=== PATIENT | female | born 1940 | race Caucasian/White ===

== ENCOUNTER 2017-05-09 08:25 | Emergency (ER) | payer MEDICARE ==
[2017-05-09] MEDS ORDERED: Aspirin Low Dose CHEW TAB* 81 MG PO ONE (09:04)
--- NOTE | 2017-05-09 09:28 | ED ---
Complex/Multi-Sys Presentation - HPI Summary HPI Summary: 76 female presents with complaints of nausea, vomiting, diarrhea and chest pain associated with shortness of breath. Nausea, vomiting and diarrhea began yesterday and lasted throughout the day and has since resolved with last episode of diarrhea being around 6:30am today 05/09/17. Patient states this morning she also experienced some intermittent, dull chest pain that lasted approximately 3 minutes at a time. She also admits to having shortness of breath when she was up walking around but she feels as though it is from feeling so weak, ill and dehydrated. She denies any current chest pain, SOB and abdominal pain. Experienced abdominal pain yesterday diffusely throughout the day that has improved. Admits to eating at "a pass the dish around" event on evening and thinks her symptoms may be from that. She has been unable to eat or drink without vomiting. She admits to feeling feverish yesterday but did not take her temperature. Denies hematemesis, melena, hematochezia. LBM was this morning. PMHx significant for cardiomyopathy, gastric ulcer resolved and tachycardia. Otherwise healthy individual. Denies difficulty breathing, dizziness, edema, headache, palpitations, diaphoresis, cough and current chest or abdominal pain. No recent bed rest, travel, antibiotic use, and does not use tobacco. - History Of Current Complaint Chief Complaint: EDChestPainROMI Time Seen by Provider: 05/09/17 09:03 Hx Obtained From: Patient Onset/Duration: Sudden Onset, Lasting Days - 1-2, Resolved - but still feeling weak and ill Timing: Intermittent, Lasting:, Minutes Severity Currently: None Severity Initially: Moderate Location: Pain At: - diffuse abdomen and mid sternal chest without radiation Character: Dull Aggravating Factor(s): eating worsened n/v/d Alleviating Factor(s): n/a Associated Signs And Symptoms: Positive: Weakness, SOB, Chest Pain, Nausea, Vomiting, Diarrhea, Abdominal Pain, Decreased Oral Intake, Fever - subjective. Negative: Decreased Responsiveness, Confusion, Agitation, Dizziness, Syncope, Headache, Cough, Wheezing, Palpitations, Edema, Back Pain, Dysuria, Melena, Diaphoresis - Allergies/Home Medications Allergies/Adverse Reactions: Allergies Allergy/AdvReac Type Severity Reaction Status Date / Time Iodine Allergy Severe Rash/Throat Verified 05/31/14 16:21 swelling Cefaclor Allergy Swelling Verified 05/30/14 17:53 Of Face,Lips,& Throat Penicillins Allergy Swelling Verified 05/30/14 17:53 Of Face,Lips,& Throat PMH/Surg Hx/FS Hx/Imm Hx Cardiovascular History: Reports: Hx Hypertension, Other Cardiovascular Problems/ Disorders - cardiomyopathy, tachycardia Respiratory History: Denies: Hx Asthma, Hx Chronic Obstructive Pulmonary Disease (COPD) GI History: Reports: Hx Ulcer Musculoskeletal History: Reports: Hx Arthritis Denies: Hx Rheumatoid Arthritis, Hx Osteoporosis Sensory History: Reports: Hx Contacts or Glasses Opthamlomology History: Reports: Hx Contacts or Glasses Neurological History: Reports: Hx Headaches - Surgical History Surgery Procedure, Year, and Place: hernia, hysterectomy,ovarian - Immunization History Immunizations Up to Date: Yes Infectious Disease History: No Infectious Disease History: Denies: Traveled Outside the [place] in Last 30 Days - Family History Known Family History: Positive: None - Social History Alcohol Use: None Substance Use Type: Reports: None Smoking Status (MU): Never Smoked Tobacco Review of Systems Positive: Fever, Chills, Fatigue Eyes: Negative ENT: Negative Positive: Chest Pain Positive: Shortness Of Breath Positive: Abdominal Pain, Vomiting, Diarrhea, Nausea Genitourinary: Negative Musculoskeletal: Negative Skin: Negative Positive: Weakness Psychological: Normal All Other Systems Reviewed And Are Negative: Yes Physical Exam Triage Information Reviewed: Yes Vital Signs On Initial Exam: Initial Vitals Temp Pulse Resp BP Pulse Ox 98 F 92 18 142/69 100 05/09/17 08:26 05/09/17 08:26 05/09/17 08:26 05/09/17 08:26 05/09/17 08:26 Vital Signs Reviewed: Yes Appearance: Positive: No Pain Distress, Well-Nourished, Ill-Appearing Skin: Positive: Warm, Skin Color Reflects Adequate Perfusion, Dry. Negative: Cold, Numb, Cyanosis @, Diaphoretic Head/Face: Positive: Normal Head/Face Inspection Eyes: Positive: Normal, EOMI, MINDI, Conjunctiva Clear ENT: Positive: Normal ENT inspection, Hearing grossly normal, Pharynx normal, TMs normal Neck: Positive: Supple, Nontender, No Lymphadenopathy Respiratory/Lung Sounds: Positive: Clear to Auscultation, Breath Sounds Present. Negative: Decreased Breath Sounds, Rales, Rhonchi, Stridor, Wheezes Cardiovascular: Positive: Normal, RRR, Pulses are Symmetrical in both Upper and Lower Extremities. Negative: Murmur, Rub, Leg Edema Left, Leg Edema Right Abdomen Description: Positive: Nontender, No Organomegaly, Soft. Negative: Bruit, CVA Tenderness (R), CVA Tenderness (L), Distended, Guarding, McBurney's Point Tenderness, Peritoneal Signs, Pulsatile Mass Bowel Sounds: Positive: Present, Hypoactive Musculoskeletal: Positive: Normal, Strength/ROM Intact Neurological: Positive: Normal, Sensory/Motor Intact, Alert, Oriented to Person Place, Time, NV Bundle Intact Distally, Normal Gait, Facial Symmetry, Speech Normal. Negative: Facial Droop Psychiatric: Positive: Affect/Mood Appropriate AVPU Assessment: Alert - [place] Coma Scale Best Eye Response: 4 - Spontaneous Best Motor Response: 6 - Obeys Commands Best Verbal Response: 5 - Oriented Coma Scale Total: 15 Diagnostics - Vital Signs Vital Signs Temp Pulse Resp BP Pulse Ox 05/09/17 08:37 13 05/09/17 08:36 140/75 05/09/17 08:33 98.3 F 84 18 140/75 95 05/09/17 08:26 98 F 92 18 142/69 100 - Laboratory Result Diagrams: 05/09/17 09:25 05/09/17 09:25 Lab Statement: Any lab studies that have been ordered have been reviewed, and results considered in the medical decision making process. - Radiology chest Xray Interpretation: No Acute Changes - PROBABLE NIPPLE SHADOW OVERLYING THE LEFT LUNG BASE. IF THERE IS CLINICAL CONCERN FOR PULMONARY PARENCHYMAL NODULARITY, RECOMMEND REPEAT IMAGING, INCLUDING OBLIQUE VIEWS WITH NIPPLE MARKERS Radiology Interpretation Completed By: Radiologist - EKG EKG Cardiac Rate: NL EKG Rhythm: Sinus Rhythm ST Segment: Normal Ectopy: None EKG Interpretation: right bundle branch block, NSR EKG Comparison: No Significant Change Re-Evaluation - Re-Evaluation First Eval Re-Evaluation Time: 10:30 Change: Improved - feeling better after first bag of fluids and zofran just recently administered. will wait for second bag of fluids and re-check before discharge Complex Multi-Symp Course/Dx Course Of Treatment: labs and EKG, chest x-ray obtained. Labs unremarkable. X- ray negative. Patient has not taken her 2 doses of digoxin or potassium today and both show to be low on labs. Given two bags of fluids and zofran and had significant improvement. No concern for any cardiac or respiratory etiology. No CHF or PE concern. Not currently having symptoms. Probably suffering from gastroenteritis from take out food she ate on and slight dehydration. Spoke with Dr Monroe and Dr Coyne about disposition as her age and PMHX are risk factors for cardiac syndromes. Discussed observation and nuclear stress test versus discharge home with follow up. Recieved records from stress test completed 2 weeks ago in office and had no signifcant change from her previous stress test in 2013. Negative troponin today. Spoke with Dr Conrad who stated if repeat troponin is negative she is safe to d/c home and follow up with Dr Nielsen , her instrument repairer steam plant. Decided that she be sent home at this time after repeat troponin was negative. Fluids, rest and continue at home medications. Given zofran for nausea as needed so able to keep meds/ food/ drink down. Aware of worsening signs and symptoms to return immediately for. Follow up with PCP and instrument repairer steam plant Dr Nielsen. - Diagnoses Differential Diagnoses/HQI/PQRI: Other - CA, ACS, PE, nausea/vomiting, Gastroenteritis Provider Diagnoses: Gastroenteritis, Weakness, Nausea vomiting and diarrhea, Chest pain - Physician Notifications Discussed Care Of Patient With: Dr Houston Coyne/Mabel at 11:00pm discuss with Dr Conrad Time Discussed With Above Provider: 11:54 Instructed by Provider To: Have Pt Call For Appt. Discharge - Discharge Plan Condition: Stable Disposition: HOME Prescriptions: Ondansetron ODT TAB* [Zofran 4 MG Odt TAB*] 4 mg PO Q6H PRN #10 tab.odt PRN Reason: Nausea Patient Education Materials: Acute Nausea and Vomiting (ED) Referrals: Alana Posada MD [Primary Care Provider] - Carlos Nielsen MD [Medical Doctor] - Additional Instructions: Take prescribed Zofran as needed for nausea/vomiting. Drink plenty of fluids and take daily mediations as directed. Rest and do not over exert yourself. Follow up with Dr Nielsne within the next 3-5 days. If you develop worsening symptoms, new symptoms or symptoms return/persist please return to ED immediately. Follow up with PCP.
[2017-05-09] MEDS: NS 0.9% 1000 ML* 2,000 ML IV ONE ×2 (09:36→10:15)
--- NOTE | 2017-05-09 09:39 | RAD ---
HISTORY: Chest pain COMPARISONS: May 30, 2014 VIEWS:1: Single frontal portable view of the chest at 8:23 AM FINDINGS: LINES AND TUBES: None. CARDIOMEDIASTINAL SILHOUETTE: The cardiomediastinal silhouette is normal for portable technique. PLEURA: The costophrenic angles are sharp. No pleural abnormalities are noted. LUNG PARENCHYMA: There is nodular density overlying the left lung base that is likely a nipple shadow ABDOMEN: The upper abdomen is clear. There is no subphrenic gas. BONES AND SOFT TISSUES: No bone or soft tissue abnormalities are noted. IMPRESSION: PROBABLE NIPPLE SHADOW OVERLYING THE LEFT LUNG BASE. IF THERE IS CLINICAL CONCERN FOR PULMONARY PARENCHYMAL NODULARITY, RECOMMEND REPEAT IMAGING, INCLUDING OBLIQUE VIEWS WITH NIPPLE MARKERS
[2017-05-09 09:41] LABS: Hematocrit 42 % (35-47); Hemoglobin 14.1 g/dl (12.0-16.0); Mean Corpuscular HGB Conc 34 g/dl (31-36); Mean Corpuscular Hemoglobin 31 pg (27-31); Mean Corpuscular Volume 91 fL (80-97); Mean Platelet Volume 7 um3 (7.4-10.4); Red Blood Count 4.58 10^6/ul (4.0-5.4); Red Cell Distribution Width 14 % (10.5-15); White Blood Count 3.2 10^3/ul (3.5-10.8)
[2017-05-09 09:42] LABS: Add Diff/Slide Review? Slide Review Added; Comments Flag Yes
[2017-05-09 09:55] LABS: ALT 17 U/L (7-52); AST 26 U/L (13-39); Albumin 3.9 g/dL (3.2-5.2); Alkaline Phosphatase 46 U/L (34-104); Anion Gap 8 mmol/L (2-11); BUN/Creatinine Ratio 26.7 (8-20); Blood Urea Nitrogen 16 mg/dL (6-24); CO2 Carbon Dioxide 25 mmol/L (22-32); Calcium 9.1 mg/dL (8.6-10.3); Chloride 100 mmol/L (101-111); EGFR African American 125.3 (>60); EGFR Non-African American 97.5 (>60); Globulin 3.4 g/dL (2-4); Glucose 113 mg/dL (70-100); Lipase < 10 U/L (11.0-82.0); Magnesium 1.9 mg/dL (1.9-2.7); Potassium 3.3 mmol/L (3.5-5.0); Sodium 133 mmol/L (133-145); Total Protein 7.3 g/dL (6.4-8.9)
[2017-05-09 09:57] LABS: Troponin I 0.01 ng/mL (<0.04)
[2017-05-09] MEDS ORDERED: Ondansetron INJ* 2 MG/ML VIAL IV ONE (10:07)
[2017-05-09 10:13] LABS: Digoxin 0.4 ng/ml (0.8-2.0)
[2017-05-09 11:52] LABS: Urine Bacteria Absent (Absent); Urine Bilirubin Negative (Negative); Urine Glucose Negative (Negative); Urine Nitrite Negative (Negative)
[2017-05-09 12:18] VITALS: BP 130/91
== END 2017-05-09 13:16 | disposition home or self-care (01) ==
LOC: ED 08:25
DX: K52.9 Noninfective gastroenteritis and colitis, unspecified (principal); R53.1 Weakness; R11.2 Nausea with vomiting, unspecified; R07.9 Chest pain, unspecified; R06.02 Shortness of breath; R19.7 Diarrhea, unspecified; R10.9 Unspecified abdominal pain
CPT/HCPCS: 36415; 71010; 80053; 80162; 81003; 81015; 83605; 83690; 83735; 84484; 85025; 85379; 93005; 99283; J2405

== ENCOUNTER 2018-04-20 08:14 | Day surgery (SDC) | payer MEDICARE ==
[~2018-04-20 08:14] MED LIST: Buffered Lidocaine 0.9% SYRIN* 5 ML/SYR SYRINGE INTRADERM ONE
[2018-04-20] MEDS ORDERED: Midazolam* 1 MG/ML 2 ML VIAL (2 MG) ONE (09:57)
[2018-04-20 10:26] VITALS: BP 126/62
[2018-04-20] MEDS ORDERED: Cyclopentolate 1% OPTH.SOL* 2 ML BTL ONE (11:51)
[2018-04-20] MEDS ORDERED: Ketorolac 0.5% OPHTH (NF) 0.5 % 5 ML BTL ONE (11:51)
[2018-04-20] MEDS ORDERED: Tropicamide 1% OPTH.SOL* BTL ONE (11:51)
[2018-04-20] MEDS ORDERED: Phenylephrine 2.5% OPTH.SOL* 2 ML BTL ONE (11:51)
[2018-04-20] MEDS ORDERED: Tetracaine 0.5% OPTH.SOL 4 ML* 1 DROP BTL ONE (11:51)
[2018-04-20] MEDS ORDERED: Lidocaine 1%* 5 ML VIAL ONE (11:51)
[2018-04-20] MEDS ORDERED: Neomycin/Polymy/Dex OPHTH.OIN* 3.5 GM ONE (11:51)
--- NOTE | 2018-04-21 05:01 | OP ---
DATE OF OPERATION: 04/20/18 [facility] DATE OF : 42 SURGEON: Dr. Satish Glover. FILM PROJECTOR OPERATOR: None. ANESTHESIA: Topical with intravenous sedation. PRE-OP DIAGNOSIS: Cataract, right eye. POST-OP DIAGNOSIS: Cataract, right eye. OPERATIVE PROCEDURE: Phacoemulsification and cataract extraction with posterior chamber intraocular lens implant, right eye. COMPLICATIONS: None. BLOOD LOSS: None. DESCRIPTION OF PROCEDURE: The patient was brought to the operating room and received a small amount of intra-venous sedation. A drop of Tetracaine was placed in her right eye. She was prepped and draped in the usual sterile fashion for ophthalmic surgery and attention was directed to the right eye where a speculum was placed. A paracentesis was created at the 11 o'clock position and 0.1 cc of 1 percent preservative-free Lidocaine was injected into the anterior chamber followed by DisCoVisc. The eye was digitally stabilized while a 2.75 mm keratome was used to create a triplanar clear corneal incision at the 9 o'clock position. A continuous curvilinear capsulorrhexis was created with a cystotome and Utrata forceps. BSS on a cannula was used to hydrodissect the lens from the capsule. Phacoemulsification was performed in a divide-and- conquer technique to create four fragments which were removed. Residual cortical material was removed with irrigation and aspiration. DisCoVisc was used to inflate the capsular bag and an AUOOTO 21.0 diopter lens was folded and inserted into the capsular bag. DisCoVisc was removed using irrigation and aspiration. BSS on a cannula was used to hydrate the corneal stroma and seal the wound. At the end of the case the pupil was round and the lens was centered. The eye was of normal pressure and the wound was water tight. The speculum was removed and topical Maxitrol ointment was placed on the surface of the eye. The eye was closed, patched and shielded and the patient was sent to the recovery room in stable condition with post operative instructions and follow-up appointment given. [id number]/CPS #: [id number] SUSANA
== END 2018-04-20 10:31 | disposition home or self-care (01) ==
LOC: OREAST 08:14
PROVIDERS: ATTEND Ophthalmology
DX: H25.13 Age-related nuclear cataract, bilateral (principal); K21.9 Gastro-esophageal reflux disease without esophagitis; I10 Essential (primary) hypertension; Z88.0 Allergy status to penicillin; Z88.8 Allergy status to other drugs, medicaments and biological substances
CPT/HCPCS: A9270-GY; J2250; V2632

== ENCOUNTER 2018-04-27 08:21 | Day surgery (SDC) | payer MEDICARE ==
[~2018-04-27 08:21] MED LIST changes: +Acetaminophen TAB* 325 MG PO PRN
[2018-04-27] MEDS ORDERED: Midazolam* 1 MG/ML 2 ML VIAL (2 MG) ONE (09:27)
[2018-04-27 10:20] VITALS: BP 127/68
[2018-04-27] MEDS ORDERED: acetaZOLAMIDE TAB* 250 MG ONE (14:02)
[2018-04-27] MEDS ORDERED: Povidone Iodine 5% OPTH* 30 ML BTL ONE (14:02)
[2018-04-27] MEDS ORDERED: Neomycin/Polymy/Dex OPTH.SUSP* MAXITROL 0.1% 5 ML ONE (14:02)
[2018-04-27] MEDS ORDERED: Lidocaine 2% EPI 1:200000 MPF*10-20 ML VIAL ONE (14:02)
[2018-04-27] MEDS ORDERED: Neomycin/Polymy/Dex OPHTH.OIN* 3.5 GM ONE ×2 (14:02→14:05)
[2018-04-27] MEDS ORDERED: Lidocaine 1%* 5 ML VIAL ONE ×2 (14:02→14:05)
[2018-04-27] MEDS ORDERED: Ketorolac 0.5% OPHTH (NF) 0.5 % 5 ML BTL ONE ×2 (14:02→14:05)
[2018-04-27] MEDS ORDERED: Tetracaine 0.5% OPTH.SOL 4 ML* 1 DROP BTL ONE ×2 (14:02→14:05)
[2018-04-27] MEDS ORDERED: Phenylephrine 2.5% OPTH.SOL* 2 ML BTL ONE ×2 (14:02→14:05)
[2018-04-27] MEDS ORDERED: Tropicamide 1% OPTH.SOL* BTL ONE ×2 (14:02→14:05)
[2018-04-27] MEDS ORDERED: Proparacaine 0.5% OPHTH.SOL* 15 ML BTL ONE (14:02)
[2018-04-27] MEDS ORDERED: Cyclopentolate 1% OPTH.SOL* 2 ML BTL ONE ×2 (14:02→14:05)
--- NOTE | 2018-04-28 05:27 | OP ---
DATE OF OPERATION: 04/27/18 [facility] DATE OF : 42 SURGEON: Dr. Satish Glover. GRAPHIC ENGINEER: None. ANESTHESIA: Topical with intravenous sedation. PRE-OP DIAGNOSIS: Cataract, left eye. POST-OP DIAGNOSIS: Cataract, left eye. OPERATIVE PROCEDURE: Phacoemulsification and cataract extraction with posterior chamber intraocular lens implant, left eye. COMPLICATIONS: None. BLOOD LOSS: None. DESCRIPTION OF PROCEDURE: The patient was brought to the operating room and received a small amount of intra-venous sedation. A drop of Tetracaine was placed in left eye. The patient was prepped and draped in the usual sterile fashion for ophthalmic surgery and attention was directed to the left eye where a speculum was placed. A paracentesis was created at the 5 o'clock position and 0.1 cc of 1 percent preservative-free Lidocaine was injected into the anterior chamber followed by DisCoVisc. The eye was digitally stabilized while a 2.75 mm keratome was used to create a triplanar clear corneal incision at the 3 o'clock position. A continuous curvilinear capsulorrhexis was created with a cystotome and Utrata forceps. BSS on a cannula was used to hydrodissect the lens from the capsule. Phacoemulsification was performed in a divide-and- conquer technique to create four fragments which were removed. Residual cortical material was removed with irrigation and aspiration. DisCoVisc was used to inflate the capsular bag and an AU00T0 22.0 diopter lens was folded and inserted into the capsular bag. DisCoVisc was removed using irrigation and aspiration. BSS on a cannula was used to hydrate the corneal stroma and seal the wound. At the end of the case the pupil was round and the lens was centered. The eye was of normal pressure and the wound was water tight. The speculum was removed and topical Maxitrol ointment was placed on the surface of the eye. The eye was closed, patched and shielded and the patient was sent to the recovery room in stable condition with post operative instructions and follow-up appointment given. [id number]/CPS #: [id number] SUSANA
== END 2018-04-27 10:15 | disposition home or self-care (01) ==
LOC: OREAST 08:21
PROVIDERS: ATTEND Ophthalmology
DX: H25.12 Age-related nuclear cataract, left eye (principal); I45.10 Unspecified right bundle-branch block; I10 Essential (primary) hypertension; I42.9 Cardiomyopathy, unspecified
CPT/HCPCS: A9270-GY; J2250; V2632

== ENCOUNTER 2019-12-13 13:42 | Inpatient (IN) | payer MEDICARE ==
--- OUTSIDE RECORDS SUMMARY | 2019-12-13 14:15 | XMS REPORT | Continuity of Care Document ---
:1940 External Reference #:[id number] Author Name Alcira Naik NShalom (transmitted by agent of provider Debby Garcia) Address [address] [place] [address] Care Team Providers Name Role Phone Vivi Perrin MD - Care Team Information Machine [facility]per [phone] Gastroenterology Paul Dumont MD - Internal Care Team Information Machine [facility] Medicine Bryan Garcia MD - Family Care Team Information Machine [facility]per [phone] Medicine Problems Active Problems Provider Date Benign essential hypertension Shimon Posada M.D. Onset: 03/02/2011 Duodenal ulcer without hemorrhage, without Shimon Posada M.D. Onset: perforation AND without obstruction Primary cardiomyopathy Carlos Nielsen M.D. Onset: 06/12/2014 Social History Type Date Description Comments Sex Unknown Tobacco Use Start: Unknown Never Smoked Cigarettes ETOH Use Occasionally consumes less than once a alcohol week Tobacco Use Start: Unknown Patient has never smoked Recreational Drug Use Denies Drug Use Smoking Status Reviewed: 12/13/19 Patient has never smoked Exercise Type/Frequency Exercises regularly walking Allergies, Adverse Reactions, Alerts Active Allergies Reaction Severity Comments Date Penicillins rash 02/19/2010 Ceclor 02/19/2010 IV Contrast rash 11/18/2011 Medications Active Medications SIG Qnty Indications Ordering Date Provider Nitroglycerin Apply Every 30units Shimon 05/11/2019 0.1mg/HR Night And Mami Posada Patches 24HR Remove 12 Hours Later Digoxin 1 tablet by 135tabs Alcira Naik, 02/18/2016 125mcg Tablets mouth 3 days a N.P. week Nitrostat one sl q5min up 25tabs I42.9 Carlos CampbellJose 10/04/2015 0.4mg Tablets Sub to 3 doses as Mami Nielsen needed Fish Oil Burp-Less by mouth once a Unknown 1000mg day Capsules Magnesium 1 tablet twice Unknown 250mg a day Klor-Con M20 take 2 tablets 180tabs Shimon 20Meq Tablets by mouth every CottonRashel.DJose ER day Fluorometholone 1 drop to both Unknown 0.1% eyes daily Suspension Restasis 1 drop on each Unknown 0.05% Emulsion eye daily Medications Administered in Office Medication SIG Qnty Indications Ordering Provider Date Technetium TC 99M TetrofosmAddy dunham M.D. 06/30/2019 Per Unit Dose Up To 40 Millicuries Injection Technetium TC 99M TetrofosminAddy M.D. 06/30/2019 Per Unit Dose Up To 40 Millicuries Injection Immunizations CPT Code Status Date Vaccine Lot # [id number] Given 08/02/2019 Influenza Virus Vaccine, Quadrivalent, Split, Preservative Free 82366 Given 09/02/2018 Fluzone High Dose 48198 Given 08/18/2017 Fluzone High Dose Q2039 Given 11/06/2016 Flu Vaccine NOS 43078 Given 10/30/2015 Influenza Virus Vaccine, Quadrivalent, Split, [id number] Preservative Free 38303 Given 05/08/2015 Pneumococcal Conjugate Vaccine 13 Valent For [id number] Intramuscular Use 21590 Given 09/14/2014 Flu Vaccine Split Virus Preservative Free For [id number] Indiv 3Yr Older Q2037 Given 12/01/2013 Fluvirin Im 3Yrs And Older [id number] Q2037 Given 11/15/2012 Fluvirin Im 3Yrs And Older [id number] Q2035 Given 11/04/2011 Afluria Vaccine 95234 Given 07/23/2010 Influenza Virus 3Yrs & Over 52359 Given 09/10/2009 Influenza Virus 3Yrs & Over 50966 Given 10/19/2008 Influenza Virus 3Yrs & Over 56600 Given 10/19/2008 Influenza Virus 3Yrs & Over 34979 Given 04/05/2007 Pneumonia Vaccine 49744 Given 10/06/2006 Influenza Virus 3Yrs & Over 28036 Given 10/06/2006 Influenza Virus 3Yrs & Over Vital Signs Date Vital Result Comment 12/13/2019 11:07am Height 61.75 inches 5'1.75" Weight 124.00 lb without shoes Heart Rate 70 /min BP Systolic Sitting 122 mmHg LA BP Diastolic Sitting 72 mmHg LA BP Systolic Standing 119 mmHg LA BP Diastolic Standing 70 mmHg LA BMI (Body Mass Index) 22.9 kg/m2 Ejection Fraction 55-60% Echo 08/15/2020 10/06/2019 11:26am Height 61.75 inches 5'1.75" Weight 125.00 lb no shoes Heart Rate 74 /min BP Systolic Sitting 126 mmHg lue reg cuff BP Diastolic Sitting 70 mmHg lue reg cuff BP Systolic Standing 120 mmHg lue reg cuff BP Diastolic Standing 70 mmHg lue reg cuff Respiratory Rate 14 /min BMI (Body Mass Index) 23.0 kg/m2 Ejection Fraction 55-60% echo. 08/15/19 Results Test Acquired Date Facility Test Result H/L Range Note Order 11/24/2019 [facility] Holter <pending> [address] [place] [address] [phone] Basic Metabolic 10/14/2019 [facility] Sodium 135 mmol/L Normal 135-[address] [place] [address] [phone] Potassium 4.3 mmol/L Normal 3.5-5.0 Chloride 101 mmol/L Normal 101-111 Co2 Carbon Dioxide 28 mmol/L Normal 22-32 Anion Gap 6 mmol/L Normal 2-11 Glucose 99 mg/dL Normal 70-100 Blood Urea Nitrogen 15 mg/dL Normal 6-24 Creatinine 0.69 mg/dL Normal 0.51-0.95 BUN/Creatinine Ratio 21.7 High 8-20 Calcium 9.2 mg/dL Normal 8.6-10.3 Egfr Non- 82.3 >60 Egfr 99.6 >60 1 Laboratory test 10/14/2019 [facility] Magnesium 2.0 mg/dL Normal 1.9-2.[address] [place] [address] [phone] Digoxin 0.9 ng/ml Normal 0.8-2.0 B-Type Natriuretic Peptide BNP 143 pg/mL High <=100 CBC Auto 09/07/2019 [facility] White Blood 5.0 10^3/uL Normal 3.5-10.[address] [place] [address] [phone] Red Blood Count 4.33 10^6/uL Normal 3.70-4.87 Hemoglobin 13.4 g/dL Normal 12.0-16.0 Hematocrit 40 % Normal 35-47 Mean Corpuscular Volume 92 fL Normal 80-97 Mean Corpuscular Hemoglobin 31 pg Normal 27-31 Mean Corpuscular HGB Conc 34 g/dL Normal 31-36 Red Cell Distribution Width 14 % Normal 10-15 Platelet Count 211 10^3/uL Normal 150-450 Mean Platelet Volume 7.1 fL Low 7.4-10.4 Abs Neutrophils 3.6 10^3/uL Normal 1.5-7.7 Abs Lymphocytes 0.9 10^3/uL Low 1.0-4.8 Abs Monocytes 0.4 10^3/uL Normal 0-0.8 Abs Eosinophils 0.0 10^3/uL Normal 0-0.6 Abs Basophils 0.1 10^3/uL Normal 0-0.2 Abs Nucleated RBC 0.0 10^3/uL Granulocyte % 72.2 % Lymphocyte % 18.5 % Monocyte % 7.4 % Eosinophil % 0.8 % Basophil % 1.1 % Nucleated Red Blood Cells % 0.1 Comp Metabolic 09/07/2019 [facility] Sodium 135 mmol/L Normal 135-[address] [place] [address] [phone] Potassium 4.1 mmol/L Normal 3.5-5.0 Chloride 100 mmol/L Low 101-111 Co2 Carbon Dioxide 29 mmol/L Normal 22-32 Anion Gap 6 mmol/L Normal 2-11 Glucose 80 mg/dL Normal 70-100 Blood Urea Nitrogen 15 mg/dL Normal 6-24 Creatinine 0.74 mg/dL Normal 0.51-0.95 BUN/Creatinine Ratio 20.3 High 8-20 Calcium 9.4 mg/dL Normal 8.6-10.3 Total Protein 6.7 g/dL Normal 6.4-8.9 Albumin 3.9 g/dL Normal 3.2-5.2 Globulin 2.8 g/dL Normal 2-4 Albumin/Globulin Ratio 1.4 Normal 1-3 Total Bilirubin 0.60 mg/dL Normal 0.2-1.0 Alkaline Phosphatase 49 U/L Normal 34-104 Alt 12 U/L Normal 7-52 Ast 18 U/L Normal 13-39 Egfr Non- 76.1 >60 Egfr 92.1 >60 2 Laboratory test 09/07/2019 [facility] Digoxin 0.7 ng/ml Low 0.8-2.0 3 finding [address] [place] [address] [phone] Basic Metabolic 07/06/2019 [facility] Sodium 136 mmol/L Normal 135-145 Panel [address] [place] [address] [phone] Potassium 4.7 mmol/L Normal 3.5-5.0 Chloride 101 mmol/L Normal 101-111 Co2 Carbon Dioxide 32 mmol/L Normal 22-32 Anion Gap 3 mmol/L Normal 2-11 Glucose 84 mg/dL Normal 70-100 Blood Urea Nitrogen 14 mg/dL Normal 6-24 Creatinine 0.68 mg/dL Normal 0.51-0.95 BUN/Creatinine Ratio 20.6 High 8-20 Calcium 9.5 mg/dL Normal 8.6-10.3 Egfr Non- 83.9 >60 Egfr 101.5 >60 4 Laboratory test 07/06/2019 [facility] Digoxin 1.4 ng/ml Normal 0.8-2.0 finding [address] [place] [address] [phone] CBC Auto Diff 07/06/2019 [facility] White Blood 4.5 Normal 3.5 -10.[address] [facility] Count 10^3/[place] [address] [phone] Red Blood Count 4.50 10^6/uL Normal 3.70-4.87 Hemoglobin 14.0 g/dL Normal 12.0-16.0 Hematocrit 41 % Normal 35-47 Mean Corpuscular Volume 91 fL Normal 80-97 Mean Corpuscular Hemoglobin 31 pg Normal 27-31 Mean Corpuscular HGB Conc 34 g/dL Normal 31-36 Red Cell Distribution Width 14 % Normal 10-15 Platelet Count 265 10^3/uL Normal 150-450 Mean Platelet Volume 6.9 fL Low 7.4-10.4 Abs Neutrophils 2.9 10^3/uL Normal 1.5-7.7 Abs Lymphocytes 1.0 10^3/uL Normal 1.0-4.8 Abs Monocytes 0.5 10^3/uL Normal 0-0.8 Abs Eosinophils 0.1 10^3/uL Normal 0-0.6 Abs Basophils 0.0 10^3/uL Normal 0-0.2 Abs Nucleated RBC 0.0 10^3/uL Granulocyte % 63.9 % Lymphocyte % 23.0 % Monocyte % 10.5 % Eosinophil % 1.7 % Basophil % 0.9 % Nucleated Red Blood Cells % 0.1 1 Because ethnic data is not always readily available, this report includes an eGFR for both -Americans and non- Americans. The National Kidney Disease Education Program (NKDEP) does not endorse the use of the MDRD equation for patients that are not between the ages of 18 and 70, are , have extremes of body size, muscle mass, or nutritional status, or are non- or non-. According to the National Kidney Foundation, irrespective of diagnosis, the stage of the disease is based on the level of kidney function: Stage Description GFR(mL/min/1.73 m(2)) 1 Kidney damage with normal or decreased GFR 90 2 Kidney damage with mild decrease in GFR 60-89 3 Moderate decrease in GFR 30-59 4 Severe decrease in GFR 15-29 5 Kidney failure <15 (or dialysis) 2 Because ethnic data is not always readily available, this report includes an eGFR for both -Americans and non- Americans. The National Kidney Disease Education Program (NKDEP) does not endorse the use of the MDRD equation for patients that are not between the ages of 18 and 70, are , have extremes of body size, muscle mass, or nutritional status, or are non- or non-. According to the National Kidney Foundation, irrespective of diagnosis, the stage of the disease is based on the level of kidney function: Stage Description GFR(mL/min/1.73 m(2)) 1 Kidney damage with normal or decreased GFR 90 2 Kidney damage with mild decrease in GFR 60-89 3 Moderate decrease in GFR 30-59 4 Severe decrease in GFR 15-29 5 Kidney failure <15 (or dialysis) 3 Copy Result to: SHIMON POSADA ([id number]) 4 Because ethnic data is not always readily available, this report includes an eGFR for both -Americans and non- Americans. The National Kidney Disease Education Program (NKDEP) does not endorse the use of the MDRD equation for patients that are not between the ages of 18 and 70, are , have extremes of body size, muscle mass, or nutritional status, or are non- or non-. According to the National Kidney Foundation, irrespective of diagnosis, the stage of the disease is based on the level of kidney function: Stage Description GFR(mL/min/1.73 m(2)) 1 Kidney damage with normal or decreased GFR 90 2 Kidney damage with mild decrease in GFR 60-89 3 Moderate decrease in GFR 30-59 4 Severe decrease in GFR 15-29 5 Kidney failure <15 (or dialysis) Procedures Date Code Description Status 12/13/2019 68357 EKG Tracing & Interpretation Completed 12/04/2019 20073 Holter Monitor Review (24 hr)dr review & interp only Completed 11/24/2019 53719 ECG Monitor/Recording W/Visual Superimposition Completed Scanning 11/24/2019 68115 ECG Monitor/Recording W/Visual Superimposition Completed Scanning 10/06/2019 11506 EKG Tracing & Interpretation Completed 08/30/2019 91967 EKG Tracing & Interpretation Completed 08/15/2019 81685 ECHO Transthoracic, Real-Time 2D With Doppler And Completed Color Flow 08/15/2019 34435 ECHO Transthoracic, Real-Time 2D With Doppler And Completed Color Flow 07/06/2019 59128 Mobile Cardiovascular Telemetry Over 24 HR Up To 30 Completed Days 07/05/2019 13169 Mobile Cardiovascular Telemetry Over 24 HR Up To 30 Completed Days 06/30/2019 65709 Stress Test Completed 06/30/2019 82713 Myocardial Perfusion Imaging Tomographic (Spect) Completed Multiple Studies 06/15/2019 79403 Mobile Cardiovascular Telemetry Over 24 HR Up To 30 Completed Days 05/11/2018 [id number] Bone Mineral Density Test Completed 04/27/2018 [id number] Diabetic Retinal Eye Exam Completed 03/30/2018 [id number] Diabetic Retinal Eye Exam Completed 03/04/2017 [id number] Mammogram Completed 05/29/2015 [id number] Mammogram Completed 12/06/2013 [id number] Mammogram Completed 12/03/2012 [id number] Mammogram Completed 12/03/2012 [id number] Bone Mineral Density Test Completed 03/01/2012 [id number] Colonoscopy Completed 02/25/2012 [id number] Colonoscopy Completed 11/18/2011 [id number] Mammogram Completed 08/01/2010 [id number] Mammogram Completed 08/01/2010 [id number] Bone Mineral Density Test Completed 02/23/2009 [id number] Colonoscopy Completed 03/01/2008 [id number] Diabetic Foot Exam Completed Medical Devices Description No Information Available Encounters Type Date Location Provider Dx Diagnosis Office Visit 12/13/2019 [facility] Alcira Naik, I44.1 Atrioventricular block, 11:30a Of Physical Metallurgist N.P. second degree I47.1 Supraventricular tachycardia R94.31 Abnormal electrocardiogram [ECG] [EKG] I34.0 Nonrheumatic mitral (valve) insufficiency R53.83 Other fatigue Office Visit 10/06/2019 11:30a [facility] Alcira Cheney I34.0 Nonrheumatic mitral Of Physical Metallurgist Gumaro, N.P. (valve) insufficiency I47.1 Supraventricular tachycardia I44.1 Atrioventricular block, second degree I45.10 Unspecified right bundle-branch block R06.00 Dyspnea, unspecified R42 Dizziness and giddiness Office Visit 08/30/2019 10:40a Hal Cochran I34.0 Nonrheumatic mitral Cardiology Mami Nielsen (valve) insufficiency I47.1 Supraventricular tachycardia R07.9 Chest pain, unspecified I45.10 Unspecified right bundle-branch block I44.1 Atrioventricular block, second degree Assessments Date Code Description Provider 12/13/2019 I44.1 Atrioventricular block, second degree Alcira S. Gumaro, N.P. 12/13/2019 I47.1 Supraventricular tachycardia Alcira S. Gumaro, N.P. 12/13/2019 R94.31 Abnormal electrocardiogram [ECG] [EKG] Alcira SJose Naik, N.P. 12/13/2019 I34.0 Nonrheumatic mitral (valve) Alcira S. Gumaro, N.P. insufficiency 12/13/2019 R53.83 Other fatigue Alcira Naik, N.P. 12/04/2019 I44.1 Atrioventricular block, second degree Carlos Nielsen M.D. 12/04/2019 I47.1 Supraventricular tachycardia Carlos Nielsen M.D. 11/24/2019 I44.1 Atrioventricular block, second degree Carlos Nielsen M.D. 11/24/2019 I44.1 Atrioventricular block, second degree Nurse Visit cc 11/24/2019 I47.1 Supraventricular tachycardia Carlos Nielsen M.D. 11/24/2019 I47.1 Supraventricular tachycardia Nurse Visit cc 10/16/2019 I47.1 Supraventricular tachycardia Carlos Nielsen M.D. 10/16/2019 I44.1 Atrioventricular block, second degree Carlos Nielsen M.D. 10/10/2019 I47.1 Supraventricular tachycardia Nurse Visit IC 10/10/2019 I44.1 Atrioventricular block, second degree Nurse Visit IC 10/06/2019 R94.31 Abnormal electrocardiogram [ECG] [EKG] Sonya Iglesias M.D. 10/06/2019 I34.0 Nonrheumatic mitral (valve) Alcira Naik, N.P. insufficiency 10/06/2019 I47.1 Supraventricular tachycardia Alcira Naik, N.P. 10/06/2019 I44.1 Mobitz type I incomplete Alcira Naik, N.P. atrioventricular block 10/06/2019 I45.10 Unspecified right bundle-branch block Alcira Naik, N.P. 10/06/2019 R06.00 Dyspnea, unspecified Alcira Niak, N.P. 10/06/2019 R42 Dizziness and giddiness Alcira Naik, N.P. 08/30/2019 I34.0 Nonrheumatic mitral (valve) Carlos Nielsen M.D. insufficiency 08/30/2019 I47.1 Supraventricular tachycardia Carlos Nielsen M.D. 08/30/2019 R07.9 Chest pain, unspecified Carlos Nielsen M.D. 08/30/2019 I45.10 Unspecified right bundle-branch block Carlos Nielsen M.D. 08/30/2019 I44.1 Mobitz type I incomplete Carlos Nielsen M.D. atrioventricular block 08/15/2019 I34.0 Nonrheumatic mitral (valve) Carlos Nielsen M.D. insufficiency 08/15/2019 I34.0 Nonrheumatic mitral (valve) [facility] insufficiency 07/06/2019 I47.1 Supraventricular tachycardia Carlos Nielsen M.D. 07/05/2019 I47.1 Supraventricular tachycardia Carlos Nielsen M.D. 06/30/2019 R07.9 Chest pain, unspecified Addy Salas M.D. 06/30/2019 R07.9 Chest pain, unspecified Carlos Nielsen M.D. 06/30/2019 I45.10 Unspecified right bundle-branch block Carlos Nielsen M.D. 06/15/2019 I47.1 Supraventricular tachycardia Carlos Nielsen M.D. Plan of Treatment Future Appointment(s):05/11/2020 1:20 pm - Shimon Posada M.D. at [facility] - [facility]12/13/2019 - Alcira Naik N.P.I44.1 Atrioventricular block, second degreeNew Labs:Cath Panel, Ordered: 12/13/19New Orders:Pacemaker Generator Change-Dual Lead System, Ordered: 12/13/19Follow up: Wound check after PPM scheduled at discharge To ER for evaluation NOW> Recommendations:Decrease digoxin to 3 days/ week HR is low and you had an episode of passing out which sounds like the heart paused Your irregular readings can also indicated heart block Recommend pacer implantation this week or next. This will allow us to continue you on medicine to suppress fast heart rhythms without making you soI47.1 Supraventricular zboeyqtrcrsR26.31 Abnormal electrocardiogram [ECG] [EKG]I34.0 Nonrheumatic mitral (valve) otfrloyazdscdS78.83 Other fatigue Functional Status Description No Information Available Mental Status Description No Information Available Referrals Description No Information Available
[2019-12-13 14:17] LABS: ABS Lymphocytes 1.2 10^3/ul (1.0-4.8); ABS Monocytes 0.5 10^3/ul (0-0.8); ABS Neutrophils 3.4 10^3/ul (1.5-7.7); Eosinophil % 0.9 %; Hematocrit 42 % (35-47); Hemoglobin 14.1 g/dL (12.0-16.0); Lymphocyte % 23.1 %; Mean Corpuscular HGB Conc 34 g/dL (31-36); Mean Corpuscular Hemoglobin 31 pg (27-31); Mean Corpuscular Volume 91 fL (80-97); Mean Platelet Volume 6.9 fL (7.4-10.4); Platelet Count 228 10^3/uL (150-450); Red Blood Count 4.58 10^6 /uL (3.70-4.87); Red Cell Distribution Width 14 % (10-15); White Blood Count 5.2 10^3/uL (3.5-10.8)
[2019-12-13 14:26] LABS: INR 1.05 (0.82-1.09)
[2019-12-13 14:34] LABS: Albumin 4.1 g/dL (3.2-5.2); Albumin/Globulin Ratio 1.2 (1-3); BUN/Creatinine Ratio 19.4 (8-20); Calcium 9.4 mg/dL (8.6-10.3); EGFR African American 94.8 (>60); EGFR Non-African American 78.3 (>60); Globulin 3.3 g/dL (2-4); Magnesium 2.4 mg/dL (1.9-2.7); Potassium 4.1 mmol/L (3.5-5.0); Total Bilirubin 0.4 mg/dL (0.2-1.0); Total Protein 7.4 g/dL (6.4-8.9)
--- NOTE | 2019-12-13 14:35 | ED ---
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 Patient saw Alcira Naik NP today and was sent here for a pacemaker placement for tomorrow or . Patient states her symptoms of bradycardia have been present for over 2 weeks. She does get lightheaded and somewhat dizzy intermittently, especially with exertion. She denies any symptoms currently. Current heart rate on arrival is 50bpm. - History of Current Complaint Chief Complaint: EDDysrhythmPalp Stated Complaint: ABNORMAL EKG PER PT Time Seen by Provider: 12/13/19 14:13 Hx Obtained From: Patient Onset/Duration: Started Hours Ago Timing: Constant Initial Severity: Mild Current Severity: None Pain Intensity: 0 Pain Scale Used: 0-10 Numeric Chest Pain Radiates: No Aggravating Factor(s): Nothing Alleviating Factor(s): Nothing Associated Signs and Symptoms: Positive: Negative - Allergy/Home Medications Allergies/Adverse Reactions: Allergies Allergy/AdvReac Type Severity Reaction Status Date / Time almond Allergy Swelling Verified 12/13/19 14:25 Of Face,Lips,& Throat cefaclor [From Ceclor] Allergy Swelling Verified 12/13/19 14:25 Of Face,Lips,& Throat iodine Allergy Rash And Verified 12/13/19 14:25 Itching peach Allergy Swelling Verified 12/13/19 14:25 Of Face,Lips,& Throat Penicillins Allergy Swelling Verified 12/13/19 14:25 Of Face,Lips,& Throat Home Medications: Home Medications Cyclosporine 0.05% OPHTH (NF) [Restasis 0.05% OPHTH] 1 drop BOTH EYES DAILY 09/21 [History Confirmed 12/13/19] Fluorometholone 0.1% OPTH.DIGNA* [Fml 0.1% Opth.susp*] 1 drop BOTH EYES DAILY 09/21 [History Confirmed 12/13/19] Nitroglycerin 1 tab SL Q5M PRN 12/13/19 [History Confirmed 12/13/19] Nitroglycerin 0.1 mg/Hr PATCH* [Nitroglycerin 2.5 MG PATCH*] 1 patch TOPICAL DAILY 12/13/19 [History Confirmed 12/13/19] PMH/Surg Hx/FS Hx/Imm Hx Previously Healthy: Yes Cardiovascular History: Reports: Hx Hypertension - ESSENTIAL, Hx Rheumatic Fever - A CHILD, Other Cardiovascular Problems/Disorders - cardiomyopathy, tachycardia Respiratory History: Denies: Hx Asthma, Hx Chronic Obstructive Pulmonary Disease (COPD) GI History: Reports: Hx Gastroesophageal Reflux Disease - PRN MEDICATION, Hx Ulcer - 8-10 YEARS AGO Musculoskeletal History: Reports: Hx Arthritis Denies: Hx Rheumatoid Arthritis, Hx Osteoporosis Sensory History: Reports: Hx Cataracts - BILATERAL, Hx Contacts or Glasses - GLASSES Denies: Hx Hearing Aid Opthamlomology History: Reports: Hx Cataracts - BILATERAL, Hx Contacts or Glasses - GLASSES Neurological History: Reports: Hx Headaches - Surgical History Surgery Procedure, Year, and Place: BILATERAL [facility], [facility]. 1989 ABDOMINAL HYSTERECTOMY WITH BILATERAL S & O, [facility] Hx Anesthesia Reactions: No - Immunization History Hx Pertussis Vaccination: No Immunizations Up to Date: Yes Infectious Disease History: No Infectious Disease History: Reports: Hx Hepatitis - A CHILD FOOD BORN Denies: Traveled Outside the [place] in Last 30 Days - Family History Known Family History: Positive: None - Social History Occupation: Unemployed Lives: Alone Alcohol Use: Occasionally Hx Substance Use: No Substance Use Type: Reports: None Smoking Status (MU): Never Smoked Tobacco Review of Systems Negative: Fever, Chills, Fatigue, Skin Diaphoresis Negative: Shortness Of Breath, Cough Negative: Abdominal Pain Positive: see HPI Negative: Arthralgia, Myalgia Negative: Rash, Bruising Negative: Headache, Weakness, Paresthesia, Numbness All Other Systems Reviewed And Are Negative: Yes Physical Exam Triage Information Reviewed: Yes Vital Signs On Initial Exam: Initial Vitals Temp Pulse Resp BP Pulse Ox 97.5 F 63 18 207/94 96 12/13/19 13:47 12/13/19 13:47 12/13/19 13:47 12/13/19 13:47 12/13/19 13:47 Vital Signs Reviewed: Yes Appearance: Positive: Well-Appearing, Well-Nourished Skin: Positive: Warm, Skin Color Reflects Adequate Perfusion Head/Face: Positive: Normal Head/Face Inspection Eyes: Positive: EOMI, Conjunctiva Clear Neck: Positive: Supple, No Lymphadenopathy Respiratory/Lung Sounds: Positive: Clear to Auscultation, Breath Sounds Present Cardiovascular: Positive: RRR, Pulses are Symmetrical in both Upper and Lower Extremities Musculoskeletal: Positive: Strength/ROM Intact Neurological: Positive: Speech Normal Psychiatric: Positive: Normal, Affect/Mood Appropriate AVPU Assessment: Alert Procedures - Sedation Patient Received Moderate/Deep Sedation with Procedure: No Diagnostics - Vital Signs Vital Signs Temp Pulse Resp BP Pulse Ox 12/13/19 13:47 97.5 F 63 18 207/94 96 - Laboratory Lab Results: Lab Results 12/13/19 12/13/19 Range/Units 14:03 14:03 WBC 5.2 (3.5-10.8) 10^3/uL RBC 4.58 (3.70-4.87) 10^6 /uL Hgb 14.1 (12.0-16.0) g/dL Hct 42 (35-47) % MCV 91 (80-97) fL MCH 31 (27-31) pg MCHC 34 (31-36) g/dL RDW 14 (10-15) % Plt Count 228 (150-450) 10^3/uL MPV 6.9 L (7.4-10.4) fL Neut % (Auto) 65.0 % Lymph % (Auto) 23.1 % Murray % (Auto) 10.1 % Eos % (Auto) 0.9 % Baso % (Auto) 0.9 % Absolute Neuts (auto) 3.4 (1.5-7.7) 10^3/ul Absolute Lymphs (auto) 1.2 (1.0-4.8) 10^3/ul Absolute Monos (auto) 0.5 (0-0.8) 10^3/ul Absolute Eos (auto) 0.0 (0-0.6) 10^3/ul Absolute Basos (auto) 0.0 (0-0.2) 10^3/ul Absolute Nucleated RBC 0.0 10^3/ul Nucleated RBC % 0.0 INR (Anticoag Therapy) 1.05 (0.82-1.09) Result Diagrams: 12/13/19 14:03 12/13/19 14:03 Lab Statement: Any lab studies that have been ordered have been reviewed, and results considered in the medical decision making process. Disposition - Course Course Of Treatment: This patient is sent over from cardiology. Patient sent over to have pacemaker placed for bradycardia. Patient is asymptomatic. Heart rate 50 bpm. Discussed with hospitalist for admission. Dr. Levine aware. - Differential Dx - Cardiopulmonary Differential Diagnoses - Cardiopulmonary: AV Block, Other - heart block, sick sinus syndrome - Diagnoses Provider Diagnoses: Bradycardia Discharge ED - Sign-Out/Discharge Documenting (check all that apply): Patient Departure - Discharge Plan Condition: Fair Disposition: ADMITTED TO [facility] Referrals: Alana Posada MD [Primary Care Provider] - - Billing Disposition and Condition Condition: FAIR Disposition: Admitted to [facility] - Attestation Statements Provider Attestation: I was available for consult. This patient was seen by the MARLENA. The patient was not presented to, seen by, or examined by me. Sarbjit Ansari MD
[2019-12-13 14:36] LABS: Troponin I 0.01 ng/mL (<0.03)
[2019-12-13 14:54] LABS: TSH (Thyroid Stimulating Horm) 1.66 mcIU/mL (0.34-5.60)
[2019-12-13 16:53] LABS: Digoxin 0.8 ng/ml (0.8-2.0)
[2019-12-13 17:39] LABS: Troponin I 0.03 ng/mL (<0.03)
[2019-12-13] MEDS ORDERED: NS 0.9% 1000 ML** 1,000 ML IV SCH (18:15)
[2019-12-13] MEDS ORDERED: Ondansetron INJ* 2 MG/ML VIAL IV PRN (18:16)
--- NOTE | 2019-12-13 19:32 | HP ---
CC: Dr. Nielsen; Dr. Posada * HISTORY AND PHYSICAL: DATE OF ADMISSION: 12/13/19 PROVIDER: Lupe Dawn NP. PRIMARY CARE PROVIDER: Dr. Posada. ATTENDING PHYSICIAN WHILE IN THE HOSPITAL: Dr. Marcelle Jo * (dictated by Lupe aDwn NP). CHIEF COMPLAINT: Dizziness. HISTORY OF PRESENT ILLNESS: Ms. Lewis is a 79-year-old female with past medical history significant for gastric ulcers, GERD, cataracts, hypertension, cardiomyopathy, and tachycardia, who presented to the emergency room from her primary cardiology office after being found to be in second-degree type 2 heart block. The patient reports that she has symptoms that started last week. She reports that she has been feeling fatigued. She had an episode where she vomited twice and was feeling fatigued. She reports she went and lied in bed, went to sleep, slept through the night, and got up the next morning and passed out on the kitchen floor. The only the thing she recalls is waking on the floor in a pile of drool. The patient reports that she knew she had a followup at her cardiology office next week. So she continued to have symptoms of dizziness throughout the week and presented to her top frame maker office for followup appointment today where they did an EKG and found her in second degree type 2 AV block. She saw Alcira Naik in the office today, who spoke to Dr. Levine, who will place a pacemaker tomorrow. Due to the AV block, the patient was sent to the emergency room for admission to the hospital. While in the emergency room, initially the patient was found to have sinus bradycardia at a rate of 66. In her later stay, she was found to have 2:1 AV block with the heart rate in the 30s. The patient does report that she becomes dizzy with standing. Her vital signs have been stable in the emergency room and lab work is within normal limits. Due to the findings of 2:1 AV block, Hospital Medicine was asked to see and evaluate her for admission. PAST MEDICAL HISTORY: Significant for gastric ulcers, GERD, cataracts, hypertension, cardiomyopathy, and tachycardia. PAST SURGICAL HISTORY: Hernia repair, hysterectomy, cataract surgery, and tonsillectomy. HOME MEDICATIONS: Include: 1. Potassium 40 mEq p.o. daily. 2. Magnesium 250 mg p.o. daily. 3. Restasis eyedrops 1 drop to both eyes daily. 4. Nitroglycerin patch topically daily. 5. Fluorometholone 0.1 ophthalmic suspension 1 drop to both eyes daily. 6. Waverly 3 one tablet p.o. daily. 7. Digoxin 0.125 mg p.o. daily. ALLERGIES: PENICILLIN, CECLOR, IODINE, PEACHES, PENICILLIN, ALMONDS FAMILY HISTORY: Father had an GA and at the age of 47, brother with a history of diabetes, mother with colon cancer. SOCIAL HISTORY: She denies any tobacco, alcohol, or illicit drug use. She is . She lives alone. Surrogate decision maker in the event she is unable to make her own decisions is her daughter Savanah. She is a full code. REVIEW OF SYSTEMS: She denies any fever, chills, or unintended weight loss. She denies any chest pain or edema. She does report dizziness with associated shortness of breath and fatigue and episode of vomiting with severe dizziness. No diarrhea or abdominal pain. No gross hematuria, dysuria, focal weakness, sensory loss, visual complaints, dysphagia, arthralgias, myalgias, rashes, lesions, open sores, psychosis, or anxiety. PHYSICAL EXAMINATION GENERAL: At this time, Ms. Lewis is a 79-year-old female. She is alert and oriented, resting on the stretcher in the emergency room. She is well developed , well nourished. VITAL SIGNS: Blood pressure 128/77, heart rate is 38, temperature is 97.5, respirations are 18, O2 saturation 96% on room air. HEENT: Head is atraumatic, normocephalic. Eyes: EOMs are intact. Sclerae anicteric and not pale. Oral mucosa is moist. NECK: Supple. LUNGS: Clear to auscultation bilaterally. No wheezes, rales, or rhonchi. CARDIAC: S1, S2. Bradycardic. No rubs or gallops. ABDOMEN: Soft and nontender. Bowel sounds are present x4. EXTREMITIES: She is able to move all 4 extremities. There is no clubbing or cyanosis. NEUROLOGIC: She is awake, alert, oriented x3. Speech is clear. Thought process is intact. There are no gross focal deficits. SKIN: Intact. DIAGNOSTIC STUDIES/LAB DATA: WBCs are 5.2, RBCs 4.58, hemoglobin 14.1, hematocrit is 42, platelet count 228. INR is 1.05. Sodium 135, potassium 4.1, chloride 102, carbon dioxide is 29, anion gap of 4, BUN is 14, creatinine 0.72, glucose 111, calcium 9.4, magnesium 2.4. AST is 21, ALT is 18, alkaline phosphatase is 49. Troponin 0.01. TSH 1.66. Digoxin level was 0.8. She did have an EKG that showed 2:1 AV block at a rate of 41. ASSESSMENT AND PLAN: Ms. Lewis is a 79-year-old female with past medical history significant for gastroesophageal reflux disease, cataracts, hypertension , cardiomyopathy and tachycardia, gastric ulcers, who presented to the emergency room from her primary cardiology office with type 2 second-degree heart block, requiring pacemaker placement. She will be admitted to the ICU with: 1. Dizziness. I suspect her dizziness is related to her underlying 2:1 AV block. The patient will have external pacemaker pads placed to her chest. She will have atropine at the bedside. She will be seen in consultation by Dr. Levine for permanent pacemaker placement tomorrow. We will repeat an EKG in the a.m. I will get a BMP and magnesium level in the a.m. as well. 2. Hypertension. The patient is not currently on any medication for hypertension. We will continue to monitor. Her blood pressure is stable at this time and she is normotensive. 3. Tachycardia. The patient does have a history of tachycardia. The patient is bradycardic in the 30s at this time. I am going to hold her digoxin as the patient is pending pacemaker placement and bradycardic. 4. FEN: She can have her healthy, caffeine okay diet. 5. Code status: She is a full code. 6. DVT prophylaxis: I will place her on SCDs as she is pending pacemaker placement in the a.m. TIME SPENT: Time spent on this admission was 60 minutes, greater than half that time was spent at the bedside reviewing the events leading thus far to her hospitalization, performing physical exam, and reviewing my plan of care. I have discussed this with my attending Dr. Marcelle Jo; she is in agreement with my plan. LUPE DAWN, CLAY MACHINE OPERATOR [id number]/[facility] #: [id number] SUSANA
[2019-12-14 00:08] LABS: Troponin I 0.03 ng/mL (<0.03)
[2019-12-14 04:51] LABS: ABS Eosinophils 0.1 10^3/ul (0-0.6); ABS Lymphocytes 1.3 10^3/ul (1.0-4.8); ABS Monocytes 0.7 10^3/ul (0-0.8); ABS Neutrophils 2.4 10^3/ul (1.5-7.7); Eosinophil % 1.9 %; Hematocrit 41 % (35-47); Hemoglobin 13.8 g/dL (12.0-16.0); Lymphocyte % 29.5 %; Mean Corpuscular HGB Conc 34 g/dL (31-36); Mean Corpuscular Hemoglobin 31 pg (27-31); Mean Corpuscular Volume 90 fL (80-97); Mean Platelet Volume 6.7 fL (7.4-10.4); Nucleated Red Blood Cells % 0.2; Platelet Count 221 10^3/uL (150-450); Red Blood Count 4.51 10^6 /uL (3.70-4.87); Red Cell Distribution Width 13 % (10-15); White Blood Count 4.5 10^3/uL (3.5-10.8)
[2019-12-14 04:58] LABS: INR 1.09 (0.82-1.09)
[2019-12-14 05:04] LABS: BUN/Creatinine Ratio 20.6 (8-20); Calcium 8.9 mg/dL (8.6-10.3); EGFR African American 101.3 (>60); EGFR Non-African American 83.7 (>60); Magnesium 2.3 mg/dL (1.9-2.7); Phosphorus 3.8 mg/dL (2.5-5.0); Potassium 3.9 mmol/L (3.5-5.0)
[2019-12-14] MEDS: Potassium Chlor TAB* 20 MEQ TAB.ER PO SCH (07:20)
[2019-12-14] MEDS: Fluorometholone 0.1% OPTH.SUS* 5 ML BTL BOTH EYES SCH (07:20)
[2019-12-14] MEDS: CMC:Cyclosporine 0.05% OPHTH (NF) 0.4 ML VIAL BOTH EYES SCH (07:49)
--- NOTE | 2019-12-14 08:17 | PN ---
Progress Note - Progress Note Date of Service: 12/14/19 Note: Progress Note -- Critical Care 24 hour events/significant evnts: Some episodes of dropped beats on tele overnight. BP stable. No complaints. ROS: negative except for pertinent positives mentioned above; Tele: NSR. Intermittent 2nd degree heart block with bradycardia. Vitals: Vital Signs: Temp Pulse Resp BP Pulse Ox 97.8 F 64 23 152/70 94 12/14/19 07:52 12/14/19 07:01 12/14/19 07:23 12/14/19 07:01 12/14/19 07:01 O2/Vent: Room air Infusions: Normal saline @50 ml/hr Medications: Cyclosporine (Restasis 0.05% Ophth) 1 drop BOTH EYES DAILY [facility]; Protocol Last Admin: 12/14/19 07:49 Dose: 1 drop Fluorometholone Acetate (Fml 0.1% Opth.Susp*) 1 drop BOTH EYES DAILY ISABELLE Last Admin: 12/14/19 07:20 Dose: 1 drop Sodium Chloride (Ns 0.9% 1000 Ml) 1,000 mls @ 100 mls/hr IV .PER RATE ISABELLE Last Admin: 12/13/19 20:23 Dose: 50 mls/hr Ondansetron HCl (Zofran Inj*) 4 mg IV Q6H PRN PRN Reason: NAUSEA Potassium Chloride (Klor Con Er Tab*) 40 meq PO DAILY ISABELLE Last Admin: 12/14/19 07:20 Dose: 40 meq Physical Exam: Constitutional: awake, alert, no distress, no diaphoresis Head: normocephalic, atraumatic Eyes: no pallor, no icterus ENT: moist mucous membranes Neck: soft, supple, no jvd, no stridor CVS: normal rate, irregular, no murmur Chest/Resp: bilateral air entry, no rhales, no wheeze, no rhonchi, no acc muscle use Abdomen/GI: soft, nontender, nondistended, BS+ Ext/Msk: warm, pulses+, no edema Skin: intact, warm Neuro: awake, alert, orientedx3, moving all extremities, no gross focal deficit Psych: normal affect Labs: Laboratory Results - last 24 hr 12/13/19 12/13/19 12/13/19 14:03 14:03 14:03 WBC 5.2 RBC 4.58 Hgb 14.1 Hct 42 MCV 91 MCH 31 MCHC 34 RDW 14 Plt Count 228 MPV 6.9 L Neut % (Auto) 65.0 Lymph % (Auto) 23.1 Pinal % (Auto) 10.1 Eos % (Auto) 0.9 Baso % (Auto) 0.9 Absolute Neuts (auto) 3.4 Absolute Lymphs (auto) 1.2 Absolute Monos (auto) 0.5 Absolute Eos (auto) 0.0 Absolute Basos (auto) 0.0 Absolute Nucleated RBC 0.0 Nucleated RBC % 0.0 INR (Anticoag Therapy) 1.05 Sodium 135 Potassium 4.1 Chloride 102 Carbon Dioxide 29 Anion Gap 4 BUN 14 Creatinine 0.72 Est GFR ( Amer) 94.8 Est GFR (Non-Af Amer) 78.3 BUN/Creatinine Ratio 19.4 Glucose 111 H Calcium 9.4 Phosphorus Magnesium 2.4 Total Bilirubin 0.40 AST 21 ALT 18 Alkaline Phosphatase 49 Troponin I 0.01 Total Protein 7.4 Albumin 4.1 Globulin 3.3 Albumin/Globulin Ratio 1.2 TSH 1.66 Digoxin 0.8 12/13/19 12/13/19 12/14/19 17:06 23:33 04:30 WBC RBC Hgb Hct MCV MCH MCHC RDW Plt Count MPV Neut % (Auto) Lymph % (Auto) Pinal % (Auto) Eos % (Auto) Baso % (Auto) Absolute Neuts (auto) Absolute Lymphs (auto) Absolute Monos (auto) Absolute Eos (auto) Absolute Basos (auto) Absolute Nucleated RBC Nucleated RBC % INR (Anticoag Therapy) Sodium 137 Potassium 3.9 Chloride 105 Carbon Dioxide 27 Anion Gap 5 BUN 14 Creatinine 0.68 Est GFR ( Amer) 101.3 Est GFR (Non-Af Amer) 83.7 BUN/Creatinine Ratio 20.6 H Glucose 95 Calcium 8.9 Phosphorus 3.8 Magnesium 2.3 Total Bilirubin AST ALT Alkaline Phosphatase Troponin I 0.03 H* 0.03 H* Total Protein Albumin Globulin Albumin/Globulin Ratio TSH Digoxin 12/14/19 12/14/19 04:30 04:30 WBC 4.5 RBC 4.51 Hgb 13.8 Hct 41 MCV 90 MCH 31 MCHC 34 RDW 13 Plt Count 221 MPV 6.7 L Neut % (Auto) 52.7 Lymph % (Auto) 29.5 Pinal % (Auto) 14.8 Eos % (Auto) 1.9 Baso % (Auto) 1.1 Absolute Neuts (auto) 2.4 Absolute Lymphs (auto) 1.3 Absolute Monos (auto) 0.7 Absolute Eos (auto) 0.1 Absolute Basos (auto) 0.0 Absolute Nucleated RBC 0.0 Nucleated RBC % 0.2 INR (Anticoag Therapy) 1.09 Sodium Potassium Chloride Carbon Dioxide Anion Gap BUN Creatinine Est GFR ( Amer) Est GFR (Non-Af Amer) BUN/Creatinine Ratio Glucose Calcium Phosphorus Magnesium Total Bilirubin AST ALT Alkaline Phosphatase Troponin I Total Protein Albumin Globulin Albumin/Globulin Ratio TSH Digoxin Imaging: CXR 12/13/19 IMPRESSION: 1. SLIGHTLY ENLARGED CARDIAC SILHOUETTE (COULD BE TECHNICAL). 2. NO FOCAL AIRSPACE OPACIFICATION Assessment: 79F with htn, gerd, pud, cardiomyopathy presents with syncope found to have 2nd heart block. For PPM today. Plan: Neuro- - pain control CVS- heart block - symptomatic 2nd deg heart block - monitor on telemetry - hold av-elvia blocking agents - fall precautions - For PPM today Resp- oxygenating well on room air ID- no evidence of active infection GI- npo until after pacer placement Renal- monitor i/o - monitor lytes Heme- monitor cbc Endo- BG ok on chemisty Musculsk- pressure ulcer prophylaxis. Bedrest. Wounds- none Nutrition- npo DVT prophylaxis: scds GI prophylaxis: none Central Line: none Arterial Line: none Rodney Cathetor: none Disposition: Patient requires Critical Care/ICU for high degree av block and risk for malignant arrythmia. Patient clinical status: stable Code Status: Full
[2019-12-14] MEDS ORDERED: methylPREDNISolone SOD 40 MG* 1 ML VIAL IV ONE (08:26)
[2019-12-14] MEDS ORDERED: Clindamycin 300 MG IVPREMIX* 300 MG/50 ML SDV IVPB ONE (09:00)
[2019-12-14] MEDS ORDERED: Iohexol 180 (CONTRAST) 10 ML SDV IV ONE (10:19)
[2019-12-14] MEDS ORDERED: Lidocaine 1% INJ* 10 MG/ML 30 ML SDV ONE (10:19)
[2019-12-14] MEDS ORDERED: fentaNYL* 50 MCG/ML 2 ML VIAL (100 MCG VIAL) ONE (10:27)
[2019-12-14] MEDS ORDERED: Midazolam* 1 MG/ML 5 ML VIAL (5 MG) ONE ×2 (10:27→10:48)
[2019-12-14] MEDS ORDERED: methylPREDNISolone 125 MG* 2 ML VIAL ONE (10:36)
[2019-12-14] MEDS ORDERED: diPHENhydraMINE IV* 50 MG/ML 1 ml VIAL (BENADRYL) ONE (10:36)
--- NOTE | 2019-12-14 10:56 | CONS ---
CC: Dr. Alana Posada; Dr. Nielsen * CONSULTATION REPORT: DATE OF CONSULT: 12/14/18 REASON FOR CONSULTATION: Syncope and high-degree heart block. HISTORY OF PRESENT ILLNESS: Mrs. Lewis is a 79-year-old woman followed by Dr. Nielsen, with a past medical history of hypertensive heart disease. She distantly presented with chest pain, mild elevation in troponins, but was found to have insignificant coronary artery disease on cath and evidence of hypertensive heart disease. She additionally has been followed for second-degree heart block. The patient currently presented to the office yesterday for followup and her EKG showed 2:1 heart block, and on history, on Thursday, she had an episode where she was nauseated, vomiting, went to bed, got up the next day to try to eat something and found herself on the floor. She denied associated fevers, chills, diarrhea, or any other GI symptoms. She has had several weeks from September until now where she will be intermittently nauseated, lightheaded , dizzy, or just not up to doing the things she would typically do, she did not feel up to cooking the Thanksgiving dinner last year. The patient denies any recent fevers, chills, sweats, coughing. No hematuria, dysuria, constipation, diarrhea. PAST MEDICAL HISTORY: The patient has a past medical history of: 1. Hypertension. 2. Right bundle-branch block. 3. 2:1 heart block. 4. Carotid bruits, but no stenosis on multiple Doppler studies. 5. Leukopenia. 6. Peptic ulcer disease. PAST SURGICAL HISTORY: Includes: 1. Hysterectomy in 1980. 2. Oophorectomy in 1990. 3. Hernia repair 1956. MEDICATIONS: Current outpatient medications include: 1. Digoxin 0.125 mg a day. 2. Nitroglycerin patch night for chest pain. 3. Fish oil 1000 mg a day. 4. Magnesium 250 mg a day. 5. Potassium 40 mEq a day. 6. Fluorometholone ophthalmic drops. 7. Restasis ophthalmic drops. 8. Amlodipine 2.5 mg every other day (on hold on our records). ALLERGIES: Include PENICILLIN, CECLOR, IV CONTRAST. FAMILY HISTORY: Positive for early coronary artery disease. Her father of an NC at age 45. Colon cancer in her mother. Brother with viral hepatitis and history of pulmonary embolism. She has another brother with a history of diabetes and a heart attack, and a sister with diabetes and valve issues. SOCIAL HISTORY: The patient is , has a supportive daughter in the area. Never smokes. No history of alcohol or drug abuse. REVIEW OF SYSTEMS: As above, negative for recent fevers, chills, sweats. No recent chest pain. She denied chest pain with her nausea events or fatigue, and all other review of systems was negative. DIAGNOSTIC STUDIES/LAB DATA: A Holter monitor from 11/24/[address] As per [address] Nielsen, normal sinus rhythm with a minimal rate of 31 beats per minute, maximum rate of 105 beats per minute. Blocked PACs; type 1 second-degree AV block, possible type 2 overnight; rare PVCs and PACs. Echo result from 08/15/19 showed normal ventricular chamber dimensions with an ejection fraction of 55% to 60% and abnormal diastolic filling, mild aortic insufficiency and aortic valve sclerosis with [id number] aortic valve stenosis. Mild mitral insufficiency. PA pressure not elevated at 32 mmHg. A 12-lead ECG in the office 12/13/19 showed normal sinus rhythm at 70 beats per minute with 2:1 heart block. She had a right bundle-branch block, QRS axis + 30. No evidence of first-degree AV block. ST and T waves were normal. Cath 2014, no evidence of plaque. Inpatient studies showed white count 4.5, hematocrit 41, platelets 221. INR 1.09. Sodium 137, potassium 3.9, chloride 105, BUN 14, creatinine 0.68, and glucose on arrival 11, fasting this morning 95. Troponin #1 of 0.03, troponin # 2 of 0.03. TSH 1.66. Digoxin 0.8. Chest x-ray from 12/13/19 showed slightly enlarged cardiac silhouette, no evidence of acute pulmonary disease. ECG from this morning, again showed sinus rhythm, 2:1 heart block, and a right bundle-branch block. Telemetries overnight showed 2:1 heart block and ventricular rates in the 30s. IMPRESSION: In summary, Tatum Lewis is a 79-year-old woman who has 2:1 heart block, Holter monitor showing possible type 2, and a history of progressive exercise intolerance, intermittent nausea, and 9 days ago, she presented with syncopal episodes. The patient has been recommended to undergo dual-chamber pacemaker implantation for high-degree AV block and syncope. The risks and benefits were discussed with the patient in the presence of her daughter and she is amenable to proceeding. She has a DYE ALLERGY and PENICILLIN ALLERGY and she will receive steroids preprocedure and clindamycin. Additional recommendations will be made pending her hospital course and response to the above measures. [id number]/[facility] #: [id number] MTDD
[2019-12-14] MEDS ORDERED: Acetaminophen TAB* 325 MG PO PRN (11:48)
[2019-12-14] MEDS: Clindamycin 300 MG IVPREMIX* 300 MG/50 ML SDV IV SCH ×2 (14:24→21:40)
[2019-12-14] MEDS: Metoprolol Succinate XL TAB* 25 MG PO SCH (17:26)
[2019-12-14] MEDS: oxyCODONE/Acetamin 5/325 MG* TAB PO PRN (21:40)
[2019-12-15] MEDS: Clindamycin 300 MG IVPREMIX* 300 MG/50 ML SDV IV SCH (06:26)
[2019-12-15] MEDS: oxyCODONE/Acetamin 5/325 MG* TAB PO PRN (06:31)
[2019-12-15 08:01] VITALS: BP 121/64
[2019-12-15] MEDS: Fluorometholone 0.1% OPTH.SUS* 5 ML BTL BOTH EYES SCH (08:35)
[2019-12-15] MEDS: Metoprolol Succinate XL TAB* 25 MG PO SCH (08:36)
[2019-12-15] MEDS: CMC:Cyclosporine 0.05% OPHTH (NF) 0.4 ML VIAL BOTH EYES SCH (08:36)
[2019-12-15] MEDS: Potassium Chlor TAB* 20 MEQ TAB.ER PO SCH (08:36)
--- NOTE | 2019-12-15 11:46 | DS ---
CC: Dr. Alana Posada; Dr. Carlos Nielsen * DISCHARGE SUMMARY: DATE OF ADMISSION: 12/13/19 DATE OF DISCHARGE: 12/15/19 ATTENDING PHYSICIAN: Dr. Maira Levine, Cardiology.* (DICTATED BY ANA ROSA PATEL NP) PRIMARY PHYSICIAN: Dr. Alana Posada. PRIMARY MANAGER EXPRESS: Dr. Carlos Nielsen. ADMITTING DIAGNOSES: 1. High-degree atrioventricular block with complaints of fatigue and prior syncopal episode. 2. History of hypertension. 3. History of right bundle branch block. 4. History of peptic ulcer disease. DISCHARGE DIAGNOSES: 1. Symptomatic high-degree atrioventricular block, status post dual chamber pacemaker implantation, 12/14/19. 2. Abnormal chest x-ray suggestive of probable chronic obstructive pulmonary disease. The patient was instructed to follow up with PCP, Dr. Alana Posada. 3. History of hypertension, now on metoprolol therapy. The patient was asked to discontinue nitroglycerin patch. PROCEDURES PERFORMED: The patient had a dual chamber pacemaker implantation by Dr. Maira Levine. Device is Medtronic. For further information, please refer to Dr. Levine's procedure note. COMPLICATIONS: None thus far. COURSE OF HOSPITAL STAY: This is a pleasant 79-year-old female patient, who follows with Dr. Carlos Nielsen of our practice due to a notable history of hypertension, syncope, hypertension who had a syncopal episode on Thursday. The patient was asked to have an ambulatory monitor and was seen in followup on 12/13/19. While being evaluated, ECG in our office showed high- degree AV block, thus the patient presented to for elective dual chamber pacemaker implantation. Prior to having procedure performed, basic blood work was obtained. White count 4.5, hemoglobin 13.8, hematocrit 41. Sodium 135, potassium 4.1, creatinine 0.72. Troponin was minimally elevated. TSH 1.6. INR 1.09. She underwent the above-mentioned procedure. There was no complication. Vital signs have remained stable. Most recent set, temperature 97.5, pulse 63, respirations 14, oxygenation 95% on room air, blood pressure 122/57. The patient historically was on transdermal nitroglycerin which has been discontinued. She is initiated on metoprolol 25 mg p.o. daily which did lower her resting heart rate which is likely why she is requiring left ventricular pacing at this current time. Today's device interrogation was reviewed. She is A-paced to 11.3%, V-paced 99.9%. Normal device function. Atrial lead pacing threshold was 0.5 volts, 0.4 msec. Right ventricular lead pacing threshold is 0.75 volts, 0.4 msec. This morning, chest x-ray was negative for pneumothorax. Of note, she had changes suggestive of underlying COPD with hyperinflation, thus she was asked to follow up with PCP, Dr. Alana Posada for evaluation of abnormal chest x-ray. She is stable, symptomatic and ready for discharge. Device site was evaluated. There is no evidence of pocket hematoma, erythema, or inflammation; edges are well approximated, kita in situ. ACTIVITIES/RESTRICTIONS: The patient is aware that she may shower starting tomorrow, 12/16/19. She is not able to take a bath, soak device, site wound or swim. She is not allowed to drive and this will be evaluated at her followup appointment next week with Alcira Naik NP. She is aware to not lift more than 5 to 10 pounds until further directed. She is aware to utilize left arm immobilizer for at least 6 weeks. She is aware to not lift left arm above shoulder for at least 6 weeks and to change wound dressing daily until followup next week. DISCHARGE MEDICATIONS: Include: 1. Metoprolol 25 mg a day. 2. Potassium 40 mEq p.o. daily. 3. Clindamycin 150 mg p.o. t.i.d. x3 days, then stop. 4. Tylenol as directed. OUTPATIENT BLOOD WORK TO BE OBTAINED: None. FOLLOWUP APPOINTMENTS: 1. The patient is to follow up with Alcira Naik NP, 12/22/19 at 12:[address] Alana Posada in the next 7 to 10 days. DISPOSITION: Stable to be discharged home. Dr. Maira Levine has personally seen and examined the patient and agrees with the above assessment and plan. ANA ROSA PATEL NP [id number]/[facility] #: [id number] [facility]
--- NOTE | 2019-12-15 14:57 | OP ---
CC: Dr. Carlos Nielsen; Dr. Posada * DATE OF OPERATION/IMPLANT: 12/14/19 - ROOM #441 DATE OF : 42 SURGEON: Maira Levine MD ANESTHESIA: MAC. PRE-OP DIAGNOSIS: Complete heart block with syncope. POST-OP DIAGNOSIS: Complete heart block with syncope. OPERATIVE PROCEDURE: ESTIMATED BLOOD LOSS: Less than 2 cc. COMPLICATIONS: None. DESCRIPTION OF PROCEDURE: The indications, risks and benefits, and details of the procedure were discussed at length with the patient in the presence of her daughter and she was amenable to proceeding. The patient is right handed and the left subclavian fossa was prepped and draped in the usual sterile fashion. A time-out was called. The patient received Solu-Medrol and Benadryl and following this received 10 cc of radiopaque dye (dye allergy) outlining the left axillary and left subclavian vein. The patient received local anesthesia over the pocket and a total of 10 mg of Versed and 50 mcg of fentanyl for sedation. Following local anesthesia, using a 10 blade knife, a 2.5 cm incision was made in the left subclavian fossa and using Bovie and blunt dissection was extended to the level of the pectoralis muscle. Using blunt dissection, a small pocket was fashioned inferiorly medially to the incision. Following this, using a modified Seldinger technique , the left subclavian vein was cannulated and using fluoroscopic guidance, a guidewire was inserted into the right atrium. This procedure was repeated with a second guidewire. Using an introducer technique, the right ventricular lead was guided into the right ventricle on to the septum. It took 2 positioning to get good pacing and sensing thresholds. Using the second guidewire in an introducer technique, the atrial lead was guided into the right atrial appendage, actively fixed in placed. Pacing and sensing thresholds were good. The leads were sutured to the pocket using 0-silk suture taking care to position with adequate extra lead for movement. The pocket was then copiously irrigated. Hemostasis was verified. The leads were attached to the device. The device was placed in the pocket and the incision was closed using 2 layers of resorbable suture, 2-0, followed by 4-0, followed by kita and external dressing. FINDINGS: The systems is a Contact At Once! MRI compatible system. The device is a Medtronic Kristie XT DR MRI. Model number WNDR01. Serial # [id number]. Atrial lead is a Medtronic model 5076-45, serial #[id number]. The ventricular lead is a Medtronic model 5076-52, serial #[id number]. P-wave sensed at 2.2 millivolts with an atrial lead impedance of 745 ohms and an atrial pacing threshold of 1.2 volts at 0.5 milliseconds. Ventricular lead senses R wave to 3.5 millivolts. Ventricular lead impedance 700 Ohms and a ventricular pacing threshold of 0.9 volts at 0.5 milliseconds. The patient was programmed in DDD mode with a lower rate of 60 beats a minute overnight. CONCLUSION: Successful dual chamber pacemaker implantation without complications. The patient was hemodynamically stable throughout the procedure and during recovery, fairly awake during the procedure. [id number]/[facility] #: [id number] MTDD
== END 2019-12-15 13:09 | disposition home or self-care (01) | DRG 244 ==
LOC: ED 13:42 → ICU 16:14 → MEDTELE 12-14 12:19
PROVIDERS: ADMIT Internal Medicine; ATTEND Specialist
PROC: 02H63JZ Insertion of Pacemaker Lead into Right Atrium, Percutaneous Approach (ICD-10-PCS; 2019-12-14)
PROC: 02HK3JZ Insertion of Pacemaker Lead into Right Ventricle, Percutaneous Approach (ICD-10-PCS; 2019-12-14)
PROC: 0JH606Z Insertion of Pacemaker, Dual Chamber into Chest Subcutaneous Tissue and Fascia, Open Approach (ICD-10-PCS; principal; 2019-12-14 10:00)
DX: I44.1 Atrioventricular block, second degree (principal); I25.10 Atherosclerotic heart disease of native coronary artery without angina pectoris; I45.10 Unspecified right bundle-branch block; I11.9 Hypertensive heart disease without heart failure; R00.1 Bradycardia, unspecified; K21.9 Gastro-esophageal reflux disease without esophagitis; I42.9 Cardiomyopathy, unspecified; M19.90 Unspecified osteoarthritis, unspecified site; R55 Syncope and collapse; J44.9 Chronic obstructive pulmonary disease, unspecified; Z79.899 Other long term (current) drug therapy; Z88.8 Allergy status to other drugs, medicaments and biological substances; Z91.018 Allergy to other foods; Z87.11 Personal history of peptic ulcer disease; Z88.0 Allergy status to penicillin; Z91.041 Radiographic dye allergy status
CPT/HCPCS: 33208; 36415; 71045; 71046; 80048; 80053; 80162; 83735; 84100; 84443; 84484; 85025; 85610; 87641; 93005; 99156; 99157; 99285; A9270-GY; C1785; C1892; C1898; J1200; J2250; J2920; J2930; J3010